=== PATIENT | male | born 1980 | race Hispanic/Latino ===

== ENCOUNTER 2017-12-03 18:11 | Emergency (ER) | payer OTHER ==
[~2017-12-03] VITALS: Ht 170.2 cm; Wt 165.0 kg
[2017-12-03] MEDS ORDERED: MECLIZINE HCL25 MG PO (19:00)
[2017-12-03] MEDS ORDERED: ZOFRAN ODT4 MG PO (19:00)
== END 2017-12-03 19:20 | disposition home or self-care (01) ==
LOC: ED 18:11
DX: H83.09 Labyrinthitis, unspecified ear (principal)
CPT/HCPCS: 99284

== ENCOUNTER 2023-03-21 21:45 | Emergency (ER) | payer OTHER ==
[~2023-03-21] VITALS: Ht 170.2 cm; Wt 117.9 kg
[~2023-03-21 21:45] MED LIST: MECLIZINE HCL25 MG PO; ZOFRAN ODT4 MG PO
[2023-03-22 00:40] VITALS: BP 120/76
--- NOTE | 2023-03-23 21:35 | EKG ---
[facility] [address] [place] [address] Signed Normal sinus rhythm Normal ECG When compared with ECG of 09-JUL-2017 13:01, No significant change was found Confirmed by Vamsi Hernandez MD () on 03/23/2023 9:34:50 PM Electronically Signed By: VAMSI HERNANDEZ MD 03/23/23 2135 PATIENT NAME: DAVE CRAWFORD JR Electrocardiogram DATE OF : 84 PHYSICIAN: VAMSI HERNANDEZ MD REPORT #: [id number] REPORT IS CONFIDENTIAL AND NOT TO BE RELEASED WITHOUT AUTHORIZATION
--- NOTE | 2023-03-23 21:37 | EKG ---
[facility] [address] [facility] [place] [address] Signed Normal sinus rhythm Normal ECG When compared with ECG of 21-MAR-2023 21:53, No significant change was found Confirmed by Vamsi Hernandez MD () on 03/23/2023 9:37:19 PM Electronically Signed By: VAMSI HERNANDEZ MD 03/23/23 2137 PATIENT NAME: DAVE CRAWFORD JR Electrocardiogram DATE OF : 84 PHYSICIAN: VAMSI HERNANDEZ MD REPORT #: [id number] REPORT IS CONFIDENTIAL AND NOT TO BE RELEASED WITHOUT AUTHORIZATION
== END 2023-03-22 00:46 | disposition home or self-care (01) ==
LOC: ED 21:45
DX: R07.89 Other chest pain (principal); R00.1 Bradycardia, unspecified; Z88.5 Allergy status to narcotic agent
CPT/HCPCS: 36415; 71045; 80053; 83735; 83880; 84484; 85025; 85379; 93005; 93010; 96374; 96375; 99285-25; J0461; J2270; J7030